=== PATIENT | male | born 1955 | race Two or more races ===

== ENCOUNTER 2022-04-18 10:52 | Emergency (ER) | payer MEDICARE, OTHER ==
[~2022-04-18] VITALS: Ht 154.9 cm; Wt 76.8 kg
[2022-04-18 11:54] VITALS: BP 151/93
[2022-04-18] MEDS ORDERED: MELO7.5T9 PO (12:41)
== END 2022-04-18 12:59 | disposition home or self-care (01) ==
LOC: ER 10:52
DX: M17.11 Unilateral primary osteoarthritis, right knee (principal)
CPT/HCPCS: 73562

== ENCOUNTER 2022-11-15 08:44 | Inpatient (IN) | payer OTHER ==
[~2022-11-15] VITALS: Ht 160 cm; Wt 76.0 kg
[~2022-11-15 08:44] MED LIST: MELO7.5T9 PO
[2022-11-15 09:23] LABS: Basophils # (auto) 0 10 ^3/uL (0-0.2); Basophils % (auto) 0.5 % (0.0-2.0); Eosinophils # (auto) 0 10 ^3/uL (0-0.8); Eosinophils % (auto) 0.6 % (0.0-7.0); Hematocrit 43.2 % (41.0-53.0); Hemoglobin 14.6 g/dL (13.5-17.5); Lymphocytes # (auto) 1.7 10 ^3/uL (0.4-5.4); Lymphocytes % (auto) 26.7 % (10.0-50.0); Mean Corpuscular Hemoglobin 30.2 pg (28.0-32.0); Mean Corpuscular Hgb Conc. 33.8 g/dL (32.0-36.0); Mean Corpuscular Volume 89.2 fL (80.0-100.0); Monocytes # (auto) 0.4 10 ^3/uL (0-1.3); Monocytes % (auto) 6.5 % (0.0-12.0); Neutrophils # (auto) 4.2 10 ^3/uL (1.6-8.6); Neutrophils % (auto) 65.7 % (37.0-80.0); Red Blood Cells 4.84 10^6/uL (4.5-5.90); Red Cell Distribution Width 12.7 % (11.8-14.3); White Blood Cell 6.4 10^3/uL (4.4-10.8)
[2022-11-15 10:18] LABS: Alanine Aminotransferase 18 U/L (7-40); Albumin 4.2 g/dL (3.2-4.8); Alkaline Phosphatase 77 U/L (46-116); Anion Gap 8.1 (5-15); Aspartate Aminotransferase 9 U/L (13-40); BUN/Creatinine Ratio 23.2 (10.0-20.0); Bilirubin, Total 0.7 mg/dL (0.2-1.0); Blood Urea Nitrogen 19 mg/dL (9-23); Calcium 8.7 mg/dL (8.5-10.1); Carbon Dioxide 22.9 mmol/L (20-30); Chloride 107 mmol/L (98-107); Glucose 165 mg/dL (74-106); Potassium 3.4 mmol/L (3.5-5.1); Sodium 138 mmol/L (136-145); Total Protein 6.7 g/dL (5.7-8.2)
[2022-11-15] MEDS ORDERED: SODIUM CHLORIDE 0.9% 1,000 ML IV ONE ×2 (11:00)
[2022-11-15 11:27] VITALS: PULSE 46; RESP 20; O2SAT 95
[2022-11-15] MEDS ORDERED: POTASSIUM CHL 20MEQ/100ML 100 ML IV ONE (11:45)
[2022-11-15 12:07] LABS: INR 1.04 (0.9-1.15); Partial Thromboplastin Time 28.4 SEC (24.5-34.5); Prothrombin Time 10.9 sec (9.3-11.8)
[2022-11-15 12:17] LABS: Alanine Aminotransferase 20 U/L (7-40); Albumin 4.4 g/dL (3.2-4.8); Alkaline Phosphatase 76 U/L (46-116); Anion Gap 9.5 (5-15); Aspartate Aminotransferase 17 U/L (13-40); Blood Urea Nitrogen 15 mg/dL (9-23); Carbon Dioxide 22.5 mmol/L (20-30); Chloride 107 mmol/L (98-107); Cholesterol 173 mg/dL (< 200); Glucose 117 mg/dL (74-106); HDL Cholesterol 53 mg/dL (40-59); LDL Cholesterol 106 mg/dL (< 100); Magnesium 2.2 mg/dL (1.6-2.6); Potassium 3.8 mmol/L (3.5-5.1); Sodium 139 mmol/L (136-145); Triglycerides 165 mg/dL (< 150)
[2022-11-15 12:18] LABS: Bilirubin, Total 0.6 mg/dL (0.2-1.0); Total Protein 7.2 g/dL (5.7-8.2)
[2022-11-15 12:27] LABS: Basophils # (auto) 0 10 ^3/uL (0-0.2); Basophils % (auto) 0.4 % (0.0-2.0); Eosinophils # (auto) 0.1 10 ^3/uL (0-0.8); Eosinophils % (auto) 0.9 % (0.0-7.0); Hematocrit 40.1 % (41.0-53.0); Hemoglobin 13.5 g/dL (13.5-17.5); Lymphocytes # (auto) 1.7 10 ^3/uL (0.4-5.4); Lymphocytes % (auto) 22.4 % (10.0-50.0); Mean Corpuscular Hemoglobin 30.3 pg (28.0-32.0); Mean Corpuscular Hgb Conc. 33.6 g/dL (32.0-36.0); Monocytes # (auto) 0.6 10 ^3/uL (0-1.3); Monocytes % (auto) 8.1 % (0.0-12.0); Neutrophils # (auto) 5.3 10 ^3/uL (1.6-8.6); Neutrophils % (auto) 68.2 % (37.0-80.0); Red Blood Cells 4.46 10^6/uL (4.5-5.90); Red Cell Distribution Width 12.6 % (11.8-14.3); White Blood Cell 7.7 10^3/uL (4.4-10.8)
[2022-11-15] MEDS ORDERED: NITROGLYCERIN 0.4 MG SL TAB SL PRN (13:15)
[2022-11-15] MEDS ORDERED: ONDANSETRON HCL 4 MG/2 ML VIAL IV PRN (13:15)
[2022-11-15] MEDS ORDERED: DOCUSATE SOD 100 MG CAP PO PRN (13:15)
[2022-11-15] MEDS ORDERED: MORPHINE SULFATE INJ 2 MG/ml SYRG IV PRN (13:15)
[2022-11-15] MEDS ORDERED: ASPirin 81 mg TAB PO ONE (13:30)
[2022-11-15] MEDS: ACETAMINOPHEN 325 MG TAB PO PRN (15:23)
[2022-11-15] MEDS ORDERED: DEXTROSE (50%) 50ML SYRG IV PRN (18:00)
[2022-11-15] MEDS ORDERED: CYANOCOBALAMIN (B-12) 1000 MCG/1 ML VIAL IM ONE (18:00)
[2022-11-15] MEDS: ACCU-CHEK COMFORT CURVE STRIP VI SCH (20:52)
[2022-11-15] MEDS: InsuLIN REG 1unit/0.01ml Soln (100units/ml) SC SCH (20:53)
[2022-11-15] MEDS: ATORVASTATIN 20 MG TAB PO SCH ×2 (22:41→22:43)
[2022-11-15] MEDS ORDERED: HYDROcodone-ACET 5/325MG TAB PO ONE (23:00)
[2022-11-16] MEDS: ACCU-CHEK COMFORT CURVE STRIP VI SCH ×4 (04:26→11:38)
[2022-11-16] MEDS: InsuLIN REG 1unit/0.01ml Soln (100units/ml) SC SCH ×4 (04:51→11:38)
[2022-11-16] MEDS: ACETAMINOPHEN 325 MG TAB PO PRN (04:53)
[2022-11-16 06:13] LABS: Basophils # (auto) 0 10 ^3/uL (0-0.2); Basophils % (auto) 0.5 % (0.0-2.0); Eosinophils # (auto) 0.1 10 ^3/uL (0-0.8); Eosinophils % (auto) 0.6 % (0.0-7.0); Hematocrit 40.3 % (41.0-53.0); Hemoglobin 13.7 g/dL (13.5-17.5); Lymphocytes # (auto) 1.8 10 ^3/uL (0.4-5.4); Lymphocytes % (auto) 20.5 % (10.0-50.0); Mean Corpuscular Hemoglobin 30.5 pg (28.0-32.0); Mean Corpuscular Hgb Conc. 34.1 g/dL (32.0-36.0); Mean Corpuscular Volume 89.6 fL (80.0-100.0); Monocytes # (auto) 0.7 10 ^3/uL (0-1.3); Monocytes % (auto) 7.6 % (0.0-12.0); Neutrophils # (auto) 6.2 10 ^3/uL (1.6-8.6); Neutrophils % (auto) 70.8 % (37.0-80.0); Red Cell Distribution Width 13.1 % (11.8-14.3); White Blood Cell 8.8 10^3/uL (4.4-10.8)
[2022-11-16 06:32] LABS: Alanine Aminotransferase 12 U/L (7-40); Albumin 3.8 g/dL (3.2-4.8); Alkaline Phosphatase 65 U/L (46-116); Aspartate Aminotransferase 8 U/L (13-40); BUN/Creatinine Ratio 12.7 (10.0-20.0); Blood Urea Nitrogen 10 mg/dL (9-23); Calcium 8.4 mg/dL (8.5-10.1); Chloride 110 mmol/L (98-107); Glucose 97 mg/dL (74-106); Magnesium 2.2 mg/dL (1.6-2.6); Potassium 3.5 mmol/L (3.5-5.1); Sodium 141 mmol/L (136-145)
[2022-11-16 06:33] LABS: Bilirubin, Total 0.9 mg/dL (0.2-1.0); Total Protein 6.2 g/dL (5.7-8.2)
[2022-11-16 08:07] LABS: Free Thyroxine Index 1.4 (1.2-4.9)
[2022-11-16 08:12] VITALS: PULSE 48; RESP 16; O2SAT 96
[2022-11-16] MEDS ORDERED: ASPirin 81 mg TAB PO SCH (10:00)
[2022-11-16] MEDS ORDERED: ENOXAPARIN SOD 40 MG/0.4 ML SYRINGE SC SCH (10:00)
[2022-11-16 10:05] VITALS: BP 112/91; PULSE 52; RESP 14; TEMP 97; O2SAT 98
[2022-11-16] MEDS ORDERED: ETOD400T3 PO (10:25)
[2022-11-16] MEDS ORDERED: ROSU40TA81 PO (10:25)
[2022-11-16] MEDS ORDERED: IBUPROFEN 600 MG TAB PO ONE (11:15)
[2022-11-16 11:47] LABS: Urine Bacteria NONE SEEN /hpf (None Seen); Urine Blood Negative /uL (Negative); Urine Clarity Clear (Clear); Urine Color Yellow (Yellow); Urine Mucus FEW (None Seen); Urine Protein, UAD Negative (Negative); Urine Urobilinogen Normal (Negative); Urine WBC 5 /hpf (0 - 3); Urine pH 5.5 (5.0-8.0)
[2022-11-16 12:14] LABS: Amphetamine Screen, Urine Neg (NEGATIVE)
[2022-11-16 12:15] LABS: Barbiturate Scree,Urine Neg (NEGATIVE); Benzodiazephine Screen, Urine Neg (NEGATIVE); Cannabinoid Screen, Urine Neg (NEGATIVE); Cocaine Screen, Urine Neg (NEGATIVE); Opiate Scree,Urine Neg (NEGATIVE); Phencyclidine Screen, Urine Neg (NEGATIVE)
[2022-11-16 13:00] VITALS: BP 117/67; PULSE 88; RESP 16; TEMP 98; O2SAT 96
[2022-11-16] MEDS ORDERED: GABAPENTIN 100 MG CAP PO SCH (22:00)
== END 2022-11-16 14:43 | disposition home or self-care (01) | DRG 69 ==
LOC: ER 08:44 → TELE 13:17 → TELE-CENTR 11-16 09:47
PROVIDERS: ADMIT Internal Medicine; ATTEND Emergency Medicine
DX: G45.9 Transient cerebral ischemic attack, unspecified (principal); E78.5 Hyperlipidemia, unspecified; R00.1 Bradycardia, unspecified; R73.03 Prediabetes; R55 Syncope and collapse; E66.3 Overweight; Z68.29 Body mass index [BMI] 29.0-29.9, adult; Z86.73 Personal history of transient ischemic attack (TIA), and cerebral infarction without residual deficits
CPT/HCPCS: 36415; 70450; 70551; 71046; 80053; 80061; 80307; 81001; 82306; 82607; 82962; 83036; 83735; 84443; 84484; 85025; 85610; 85730; 93005; 93306; 93886; 96365; 99291; G0378; J3480

== ENCOUNTER → 2023-03-03 | Outpatient (CLI) | payer OTHER ==
[~2023-03-03] VITALS: Ht 157.5 cm; Wt 79.4 kg
[~2023-03-03] MED LIST changes: +ADENOSINE 67 MG in GIVE UN-DILUTED 0 ML IV ONE; +ETOD400T3 PO; +ROSU40TA81 PO
== END | disposition home or self-care (01) ==
LOC: XYW 11:37
PROVIDERS: ATTEND Student in an Organized Health Care Education/Training Program
DX: R07.89 Other chest pain (principal); I10 Essential (primary) hypertension; E78.5 Hyperlipidemia, unspecified; R55 Syncope and collapse
CPT/HCPCS: 78452; 93017; A9500; J0153

== ENCOUNTER → 2023-03-17 | Outpatient (CLI) | payer OTHER ==
[~2023-03-17] MED LIST changes: -ADENOSINE 67 MG in GIVE UN-DILUTED 0 ML IV ONE
[2023-03-17 09:30] LABS: Basophils # (auto) 0 10 ^3/uL (0-0.2); Basophils % (auto) 0.4 % (0.0-2.0); Eosinophils # (auto) 0.1 10 ^3/uL (0-0.8); Eosinophils % (auto) 1.1 % (0.0-7.0); Hematocrit 41.8 % (41.0-53.0); Lymphocytes # (auto) 2.3 10 ^3/uL (0.4-5.4); Lymphocytes % (auto) 35.1 % (10.0-50.0); Mean Corpuscular Hemoglobin 30.5 pg (28.0-32.0); Mean Corpuscular Hgb Conc. 33.5 g/dL (32.0-36.0); Mean Corpuscular Volume 90.8 fL (80.0-100.0); Monocytes # (auto) 0.5 10 ^3/uL (0-1.3); Monocytes % (auto) 7.8 % (0.0-12.0); Neutrophils # (auto) 3.7 10 ^3/uL (1.6-8.6); Neutrophils % (auto) 55.6 % (37.0-80.0); Nucleated Red Blood Cells % 0.1 %; Red Blood Cells 4.61 10^6/uL (4.5-5.90); Red Cell Distribution Width 13.5 % (11.8-14.3); White Blood Cell 6.6 10^3/uL (4.4-10.8)
[2023-03-17 09:42] LABS: Urine Bacteria NONE SEEN /hpf (None Seen); Urine Blood Negative /uL (Negative); Urine Clarity Clear (Clear); Urine Color Yellow (Yellow); Urine Protein, UAD Negative (Negative); Urine Specific Gravity 1.018 (1.001-1.035); Urine Urobilinogen Normal (Negative); Urine WBC 1 /hpf (0 - 3); Urine pH 5.5 (5.0-8.0)
[2023-03-17 10:01] LABS: Alanine Aminotransferase 41 U/L (7-40); Albumin 4.3 g/dL (3.2-4.8); Alkaline Phosphatase 89 U/L (46-116); Anion Gap 9 (5-15); Aspartate Aminotransferase 21 U/L (13-40); BUN/Creatinine Ratio 14.1 (10.0-20.0); Blood Urea Nitrogen 12 mg/dL (9-23); Calcium 9.2 mg/dL (8.5-10.1); Carbon Dioxide 25 mmol/L (20-30); Chloride 107 mmol/L (98-107); Glucose 105 mg/dL (74-106); LDL Cholesterol 89 mg/dL (< 100); Potassium 3.9 mmol/L (3.5-5.1); Sodium 141 mmol/L (136-145); Triglycerides 152 mg/dL (< 150)
[2023-03-17 10:02] LABS: Bilirubin, Total 1.1 mg/dL (0.2-1.0); Cholesterol 155 mg/dL (< 200); HDL Cholesterol 47 mg/dL (40-59); Total Protein 6.9 g/dL (5.7-8.2)
== END | disposition home or self-care (01) ==
LOC: LAB 09:15
PROVIDERS: ATTEND Nurse Practitioner
DX: I10 Essential (primary) hypertension (principal); E78.5 Hyperlipidemia, unspecified; R73.9 Hyperglycemia, unspecified
CPT/HCPCS: 36415; 80053; 80061; 81001; 83036; 84153; 84443; 85025

== ENCOUNTER 2023-04-27 16:35 | Inpatient (IN) | payer OTHER ==
[~2023-04-27] VITALS: Ht 170.2 cm; Wt 77.3 kg
[~2023-04-27 16:35] MED LIST changes: +ASPI-498 OR; +ATOR40TA52 PO; -ETOD400T3 PO; +LISI20TA56 PO; -MELO7.5T9 PO; -ROSU40TA81 PO
[2023-04-27 17:01] LABS: Basophils # (auto) 0 10 ^3/uL (0-0.2); Basophils % (auto) 0.3 % (0.0-2.0); Eosinophils # (auto) 0.1 10 ^3/uL (0-0.8); Eosinophils % (auto) 0.5 % (0.0-7.0); Hematocrit 44.9 % (41.0-53.0); Hemoglobin 14.7 g/dL (13.5-17.5); Lymphocytes # (auto) 2.5 10 ^3/uL (0.4-5.4); Lymphocytes % (auto) 19.3 % (10.0-50.0); Mean Corpuscular Hemoglobin 30.4 pg (28.0-32.0); Mean Corpuscular Hgb Conc. 32.7 g/dL (32.0-36.0); Monocytes # (auto) 0.9 10 ^3/uL (0-1.3); Monocytes % (auto) 7.4 % (0.0-12.0); Neutrophils # (auto) 9.2 10 ^3/uL (1.6-8.6); Neutrophils % (auto) 72.5 % (37.0-80.0); Nucleated Red Blood Cells % 0.1 %; Red Blood Cells 4.83 10^6/uL (4.5-5.90); Red Cell Distribution Width 13.4 % (11.8-14.3); White Blood Cell 12.7 10^3/uL (4.4-10.8)
[2023-04-27 17:15] VITALS: PULSE 62; RESP 20; O2SAT 94
[2023-04-27 17:36] LABS: Chloride 109 mmol/L (98-107); Potassium 3.9 mmol/L (3.5-5.1); Sodium 141 mmol/L (136-145)
[2023-04-27 17:37] LABS: Anion Gap 7 (5-15); Calcium 8.7 mg/dL (8.5-10.1); Carbon Dioxide 25 mmol/L (20-30)
[2023-04-27 17:42] LABS: BUN/Creatinine Ratio 17.3 (10.0-20.0); Blood Urea Nitrogen 18 mg/dL (9-23); Glucose 103 mg/dL (74-106)
[2023-04-27 19:30] VITALS: PULSE 63; RESP 17; O2SAT 95
[2023-04-27 20:21] LABS: Urine Bacteria NONE SEEN /hpf (None Seen); Urine Blood Negative /uL (Negative); Urine Clarity Clear (Clear); Urine Color Yellow (Yellow); Urine Mucus FEW (None Seen); Urine Protein, UAD TRACE (Negative); Urine Specific Gravity 1.027 (1.001-1.035); Urine Urobilinogen Normal (Negative); Urine WBC 2 /hpf (0 - 3)
[2023-04-27] MEDS ORDERED: ACETAMINOPHEN 325 MG TAB PO PRN (21:15)
[2023-04-27] MEDS ORDERED: MORPHINE SULFATE INJ 2 MG/ml SYRG IV PRN (21:15)
[2023-04-27] MEDS ORDERED: NITROGLYCERIN 0.4 MG SL TAB SL PRN (21:15)
[2023-04-27] MEDS ORDERED: ONDANSETRON HCL 4 MG/2 ML VIAL IV PRN (21:15)
[2023-04-27] MEDS: HYDROcodone-ACET 5/325MG TAB PO PRN (22:17)
[2023-04-27] MEDS: ATORVASTATIN 20 MG TAB PO SCH (22:17)
[2023-04-28 05:33] LABS: Chloride 108 mmol/L (98-107); Sodium 139 mmol/L (136-145)
[2023-04-28 05:34] LABS: Anion Gap 5 (5-15); Calcium 8.7 mg/dL (8.5-10.1); Carbon Dioxide 26 mmol/L (20-30)
[2023-04-28 05:39] LABS: Glucose 97 mg/dL (74-106)
[2023-04-28 05:40] LABS: BUN/Creatinine Ratio 19.8 (10.0-20.0); Blood Urea Nitrogen 16 mg/dL (9-23)
[2023-04-28 07:48] VITALS: RESP 20; O2SAT 96
[2023-04-28 08:05] VITALS: TEMP 98.2
[2023-04-28] MEDS ORDERED: POTA-180 PO (08:56)
[2023-04-28] MEDS ORDERED: AZITTAB PO (08:56)
[2023-04-28] MEDS ORDERED: FURO1TAB31 PO (08:56)
[2023-04-28] MEDS ORDERED: ASPirin 81 mg TAB PO SCH (10:00)
[2023-04-28] MEDS: FUROSEMIDE 20 MG TAB PO SCH (10:16)
[2023-04-28] MEDS: AZITHROMYCIN 500MG/ 250ML 250 ML IV SCH (10:16)
[2023-04-28 11:00] VITALS: BP 128/62; PULSE 63; RESP 18; O2SAT 94
== END 2023-04-28 12:33 | disposition home or self-care (01) | DRG 313 ==
LOC: EDBD 16:35 → ER 16:35 → TELE 21:08
PROVIDERS: ADMIT Nurse Practitioner; ATTEND Internal Medicine
DX: R07.89 Other chest pain (principal); I25.10 Atherosclerotic heart disease of native coronary artery without angina pectoris; I25.2 Old myocardial infarction; Z95.0 Presence of cardiac pacemaker; E78.5 Hyperlipidemia, unspecified; I11.9 Hypertensive heart disease without heart failure; Z86.73 Personal history of transient ischemic attack (TIA), and cerebral infarction without residual deficits; Z87.891 Personal history of nicotine dependence
CPT/HCPCS: 36415; 71045; 71250; 80048; 80053; 81001; 83880; 84484; 85025; 85379; 85610; 85730; 93005; 99152; G0378; J2250; Q9967

== ENCOUNTER → 2023-09-12 | Outpatient (CLI) | payer OTHER ==
[~2023-09-12] MED LIST changes: +AZITTAB PO; +FURO1TAB31 PO; +POTA-180 PO
[2023-09-12 08:52] LABS: Alanine Aminotransferase 15 U/L (7-40); Albumin 4.1 g/dL (3.2-4.8); Alkaline Phosphatase 89 U/L (46-116); Anion Gap 4 (5-15); Aspartate Aminotransferase 9 U/L (13-40); BUN/Creatinine Ratio 14.8 (10.0-20.0); Bilirubin, Total 0.5 mg/dL (0.2-1.0); Blood Urea Nitrogen 12 mg/dL (9-23); Carbon Dioxide 25 mmol/L (20-30); Chloride 109 mmol/L (98-107); Cholesterol 198 mg/dL (< 200); Glucose 113 mg/dL (74-106); HDL Cholesterol 43 mg/dL (40-59); LDL Cholesterol 139 mg/dL (< 100); Potassium 3.6 mmol/L (3.5-5.1); Sodium 138 mmol/L (136-145); Total Protein 6.7 g/dL (5.7-8.2); Triglycerides 139 mg/dL (< 150)
== END | disposition home or self-care (01) ==
LOC: LAB 07:57
PROVIDERS: ATTEND Nurse Practitioner
DX: E78.5 Hyperlipidemia, unspecified (principal); R73.9 Hyperglycemia, unspecified
CPT/HCPCS: 36415; 80053; 80061; 83036; 84153

== ENCOUNTER 2024-04-29 18:52 | Emergency (ER) | payer MEDICARE, OTHER ==
[~2024-04-29] VITALS: Ht 152.4 cm; Wt 75.0 kg
[2024-04-29 20:41] VITALS: BP 151/94; PULSE 66; RESP 17; TEMP 97.3; O2SAT 95
[2024-04-29] MEDS: KETOROLAC TROMETH 60MG/2ML VIAL IM ONE (21:52)
[2024-04-29] MEDS: DexAMETHasone SOD PHOS 10MG/1ML VIAL INJ IM ONE (21:52)
--- NOTE | 2024-04-29 21:58 | DVH ---
CT LS SPINE WO CONTRAST INDICATION: LOWER BACK PAIN EXAM DATE: 04/29/2024 09:30 PM COMPARISON: None RADIATION DOSE: CTDIvol: 15.09 mGy, DLP: 540.73 mGy*cm Technique: Utilizing the CT scanner, contiguous axial scans were obtained through the lumbar spine. C oronal and sagittal reformatted images were then generated. All CT scans at this medical facility are performed using dose modulation techniques as appropriate t o a performed exam including the following: Automated exposure control was utilized; adjustment of th e MA and/or KV according to patient size; and use of iterative reconstruction technique. FINDINGS: 5 [id number] lumbar-type vertebrae. Normal alignment of the lumbar spine. Straightening of the lumbar lordosis. Vertebral body heights are maintained. No evidence of acute traumatic fractures or spondylolisthesis. T12-L1: No significant spinal canal or neural foramina stenosis. L1-L2: Minimal posterior disc bulge without significant spinal canal or neural foramina stenosis. L2-L3: Mild posterior disc bulge without significant spinal canal or neural foramina stenosis. L3-L4: Mild posterior disc bulge without significant spinal canal or neural foramina stenosis. L4-L5: Mild posterior disc bulge without significant spinal canal stenosis. Mild bilateral neural fo ramina stenosis. L5-S1: There appears to be large posterior disc bulge/ disc extrusion causing severe spinal canal medardo nosis with moderate right and mild left-sided neural foramina stenosis. Paraspinal muscles are unremarkable. 1.6 cm right renal cyst. IMPRESSION: Multilevel posterior disc bulges with appearance of severe spinal canal stenosis at L5-S1. MRI is rec ommended for further evaluation.
[2024-04-29] MEDS: HYDROcodone-ACET 5/325MG TAB PO ONE (21:59)
[2024-04-30] MEDS ORDERED: METH4PAK PO (00:13)
[2024-04-30] MEDS ORDERED: METH-1181 PO (00:13)
--- NOTE | 2024-04-30 00:13 | ED.PDOC ---
Back pain HPI HPI Comments BIBA FOR C/O LOWER BACK PAIN S/P PUTTING HIS SOCKS AND FELT PAIN AFTER STANDING UP DENIES FALL INJURY. Denies numbness, weakness saddle anesthesia or loss of bowel or bladder control Chief Complaint: Back Pain Time Seen by MD: 19:05 Primary Care Provider: BEVERLY Allen Notes: Nurses Notes, Agency Director Notes, Medications, Allergies Allergies: Coded Allergies: NO KNOWN ALLERGIES (Unverified , 04/18/22) Home Meds Active Scripts Methocarbamol (Methocarbamol) 500 Mg Tab, 500 MG PO BID PRN for 7 Days, #14 TAB Prov:ULISESALLA DOG RACES MANAGER 04/30/24 Methylprednisolone (Medrol Dosepak) 4 Mg Dillan, 4 MG PO UD for 6 Days, #21 TAB UAD Prov:ALLA MONTGOMERY DOG RACES MANAGER 04/30/24 Azithromycin (Zithromax Z-Dillan) 250 Mg Tab, 250 MG PO QAM for 3 Days, #3 TAB Prov:EV HERNANDEZ MD 04/28/23 Potassium Chloride (Potassium Chloride ER) 20 Meq Tab, 20 MEQ PO QAM for 10 Days, #10 TAB Prov:EV HERNANDEZ MD 04/28/23 Furosemide (Lasix) 40 Mg Tab, 40 MG PO QAM for 10 Days, #10 TAB Prov:EV HERNANDEZ MD 04/28/23 Reported Medications Atorvastatin Calcium (ATORVASTATIN CALCIUM) 40 Mg Tab, 60 MG PO DAILY 04/26/23 Lisinopril (Lisinopril) 20 Mg Tab, 1 TAB PO DAILY 04/26/23 Aspirin (ASPIRIN 81) 81 Mg Tab, 81 MG OR DAILY, TAB 04/26/23 Information Source: Patient Mode of Arrival: EMS Past Medical History PAST MEDICAL HISTORY: CAD, High Lipids, HTN, NC Surgical History: Hernia Repair, Pacemaker Family History Family History: Reviewed,noncontributory to illness Social History Smoker: Non-Smoker Alcohol: Denies ETOH Use Drugs: Denies Drug Use Lives In: Home Constitutional: denies: chills, diaphoresis, fatigue, fever, malaise, sweats, weakness, others EENTM: denies: blurred vision, double vision, ear bleeding, ear discharge, ear drainage, ear pain, ear ringing, eye pain, eye redness, hearing loss, mouth pain, mouth swelling, nasal discharge, nose bleeding, nose congestion, nose pain, photophobia, tearing, throat pain, throat swelling, voice changes, others Respiratory: denies: cough, hemoptysis, orthopnea, SOB at rest, shortness of breath, SOB with excertion, stridor, wheezing, others Cardiovascular: denies: chest pain, dizzy spells, diaphoresis, Dyspnea on exertion, edema, irregular heart beat, left arm pain, lightheadedness, palpitations, PND, syncope, others Gastrointestinal: denies: abdomen distended, abdominal pain, blood streaked bowels, constipated, diarrhea, dysphagia, difficulty swallowing, hematemesis, melena, nausea, poor appetite, poor fluid intake, rectal bleeding, rectal pain, vomiting, others Genitourinary: denies: burning, dysuria, flank pain, frequency, hematuria, incontinence, penile discharge, penile sore, pain, testicle pain, testicle swelling, urgency, others Neurological: denies: dizziness, fainting, headache, left sided numbness, left sided weakness, numbness, paresthesia, pre-existing deficit, right sided numbness, right sided weakness, seizure, speech problems, tingling, tremors, weakness, others Musculoskeletal: reports: back pain; denies: gout, joint pain, joint swelling, muscle pain, muscle stiffness, neck pain, others Integumetry: denies: bruises, change in color, change in hair/nails, dryness, laceration, lesions, lumps, rash, wounds, others Allergic/Immunocompromised: denies: Difficulty Healing, Frequent Infections, Hives, Itching, others Hematologic/Lymphatic: denies: anemia, blood clots, easy bleeding, easy bruising, swollen glands, others Endocrine: denies: excessive hunger, excessive sweating, excessive thirst, excessive urination, flushing, intolerance to cold, intolerance to heat, unexplained weight gain, unexplained weight loss, others Physical Exam General Appearance: No Apparent Distress, Normal HEENT: Pharynx Normal Neck: Full Range of Motion, Non-Tender Respiratory: Lungs Clear, No Respiratory Distress, Normal Breath Sounds Cardiovascular: No Murmur, Normal Peripheral Pulses, Regular Rate/Rhythm Breast Exam: Deferred Gastrointestinal: Non Tender, Soft Genitalia: Deferred Pelvic: Deferred Rectal: Deferred Extremities: No calf tenderness, Normal capillary refill, Normal inspection, Normal range of motion, Non-tender, No pedal edema Musculoskeletal : Location: Bilateral Extremity Location: Back (TENDERNESS PALPATED OVER L4 THROUGH L5 WITHOUT CR EPITUS OR STEP-OFFS. STRAIGHT LEG RAISE POSITIVE BILATERAL L5-S1 PATTERN SENSORY AND MOTION INTACT POSITIVE PEDAL PULSES) Apperance: Normal Neurologic: Alert, career development director II-XII nml as Tested, No Motor Deficits, Normal Affect, Normal Mood, No Sensory Deficits Cerebellar Function: Normal Reflexes: Normal Skin: Dry, Normal Color, Warm Lymphatic: No Adenopathy Was a procedure done? Was a procedure done?: No Back Pain Differential Dx Differential Diagnosis: Fracture, Musculoskeletal Pain X-Ray, Labs, Meds, VS Vital Signs Date Time Temp Pulse Resp B/P (MAP) Pulse Ox O2 Delivery O2 Flow Rate FiO2 04/29/24 20:41 97.3 66 17 151/94 (113) 95 97.3 04/29/24 20:41 66 17 95 Room Air 04/29/24 18:57 98.7 68 16 143/83 (103) 96 Current Medications Medications (Trade) Dose Ordered Sig/[place] Route Start Time Stop Time Status Last Admin Ketorolac Tromethamine (Toradol Injection) 60 mg ONCE ONCE IM 04/29/24 21:15 04/29/24 21:16 DC 04/29/24 21:52 Dexamethasone Sodium Phosphate (Decadron Injection) 10 mg ONCE ONCE IM 04/29/24 21:15 04/29/24 21:16 DC 04/29/24 21:52 X-Ray, Labs, Meds, VS Comment CT SCAN LUMBAR SPINE SHOWS L5-S1 DISC EXTRUSION ABUTTING UP AGAINST NERVES WITH MODERATE TO SEVERE CENTRAL CANAL STENOSIS. PATIENT WAS GIVEN TORADOL 60 MG IM HE REPORTS IMPROVEMENT IN PAIN AND FUNCTION ABLE TO AMBULATE AT THIS TIME. DISCUSSED WITH PATIENT DETAIL RECOMMEND FOLLOWING UP WITH HIS PCP FOR REFERRAL TO PAIN MANAGEMENT CONSIDER EPIDURAL INJE CTIONS AND THEN SURGICAL CONSULT IF NO IMPROVEMENT. MEDROL DOSEPAK. MUSCLE RELAXER. ADVISED ON ER RETURN PRECAUTIONS SUCH SADDLE ANESTHESIA LOSS OF BOWEL OR BLADDER FUNCTION/CONTROL OR ANY CONCERNING SYMPTOMS SHE HAD UNDERSTANDING AGREES WITH DISCHARGE PLAN OF CARE. Time of 1ST Reevaluation: 00:01 Reevaluation 1ST: Improved Patient Education/Counseling: Diagnosis, Treatment, Prognosis, Need For Follow Up Family Education/Counseling: No Family Present Departure 1 Departure Time of Disposition: 00:04 Impression: Primary Impression: Spinal stenosis, lumbar region without neurogenic claudication Additional Impression: Lumbar radiculopathy Disposition: 01 HOME / SELF CARE / HOMELESS Condition: Stable e-Prescriptions Methocarbamol (Methocarbamol) 500 Mg Tab 500 MG PO BID PRN for 7 Days, #14 TAB Prov: ALLA MONTGOMERY 04/30/24 Methylprednisolone (Medrol Dosepak) 4 Mg Dillan 4 MG PO UD for 6 Days, #21 TAB UAD Prov: ALLA MONTGOMERY 04/30/24 Discharged With: Significant Other Critical Care Note Critical Care Time?: No Stability Stability form required: No ALLA MONTGOMERY Apr 30, 2024 00:13
== END 2024-04-30 00:26 | disposition home or self-care (01) ==
LOC: ER 18:52 → EDUNIT# 18:52 → EDBD 18:52 → ER 04-30 00:24
DX: M54.16 Radiculopathy, lumbar region (principal); M48.061 Spinal stenosis, lumbar region without neurogenic claudication; E78.5 Hyperlipidemia, unspecified; I10 Essential (primary) hypertension; Z98.890 Other specified postprocedural states; Z79.899 Other long term (current) drug therapy
CPT/HCPCS: 72131; 96372; 99285; J1100; J1885

== ENCOUNTER → 2024-09-28 | Outpatient (CLI) | payer OTHER ==
[2024-09-28 10:04] LABS: Alanine Aminotransferase 18 U/L (7-40); Albumin 4.1 g/dL (3.2-4.8); Alkaline Phosphatase 80 U/L (46-116); Anion Gap 9 (5-15); BUN/Creatinine Ratio 20.7 (10.0-20.0); Blood Urea Nitrogen 18 mg/dL (9-23); Calcium 9.0 mg/dL (8.7-10.4); Carbon Dioxide 25 mmol/L (20-31); Potassium 3.7 mmol/L (3.5-5.1); Sodium 142 mmol/L (136-145); Total Protein 6.6 g/dL (5.7-8.2); Triglycerides 138 mg/dL (< 150)
[2024-09-28 10:05] LABS: Bilirubin, Total 0.7 mg/dL (0.2-1.0); HDL Cholesterol 50 mg/dL (40-59)
[2024-09-28 10:06] LABS: Chloride 108 mmol/L (98-107); Cholesterol 210 mg/dL (< 200); Glucose 109 mg/dL (74-106)
[2024-09-28 10:08] LABS: Hematocrit 44.1 % (41.0-53.0); Hemoglobin 15.0 g/dL (13.5-17.5); Mean Corpuscular Hemoglobin 30.5 pg (28.0-32.0); Mean Corpuscular Volume 89.4 fL (80.0-100.0); Nucleated Red Blood Cells % 0.2 %
[2024-09-28 10:12] LABS: Urine Protein, UAD Negative (Negative)
== END | disposition home or self-care (01) ==
LOC: LAB 08:56
PROVIDERS: ATTEND Nurse Practitioner
DX: I10 Essential (primary) hypertension (principal); E78.5 Hyperlipidemia, unspecified
CPT/HCPCS: 36415; 80053; 80061; 81001; 83036; 84153; 84443; 85025

== ENCOUNTER 2025-02-13 08:20 | Outpatient (CLI) | payer OTHER ==
[2025-02-13 09:13] LABS: Alanine Aminotransferase 31 U/L (7-40); Albumin 4.4 g/dL (3.2-4.8); Alkaline Phosphatase 72 U/L (46-116); Anion Gap 8 (5-15); BUN/Creatinine Ratio 11.6 (10.0-20.0); Blood Urea Nitrogen 14 mg/dL (9-23); Calcium 9.6 mg/dL (8.7-10.4); Carbon Dioxide 30 mmol/L (20-31); Glucose 95 mg/dL (74-106); Potassium 4.7 mmol/L (3.5-5.1); Sodium 145 mmol/L (136-145); Total Protein 7.5 g/dL (5.7-8.2); Triglycerides 71 mg/dL (< 150)
[2025-02-13 09:14] LABS: Bilirubin, Total 0.6 mg/dL (0.2-1.0); Cholesterol 184 mg/dL (< 200); HDL Cholesterol 51 mg/dL (40-59)
[2025-02-13 09:17] LABS: Chloride 107 mmol/L (98-107)
== END 2025-02-13 17:00 | disposition home or self-care (01) ==
LOC: LAB 08:20
PROVIDERS: ATTEND Nurse Practitioner
DX: I10 Essential (primary) hypertension (principal); E78.5 Hyperlipidemia, unspecified; R73.9 Hyperglycemia, unspecified
CPT/HCPCS: 36415; 80053; 80061; 83036